=== PATIENT | male | born 1955 | race Caucasian/White ===

== ENCOUNTER 2021-08-27 09:54 | Inpatient (IN) ==
--- NOTE | 2021-08-27 10:12 | Emergency Department Note ---
Impression & Plan Multiple subsegmental pulmonary emboli without acute cor pulmonale, Acute DVT (deep venous thrombosis) ED Provider Note NAME: DARI THOMAS AGE: 65 SEX: M : 1955 ARRIVES VIA: Walk-In INFORMANT: Patient ED PROVIDER(S): Endy Salguero DO CHIEF COMPLAINT: right calf pain HPI: Patient is a 65-year-old male who presents to the ER for right lower extremity pain. This has been present for the past 5 days. He was going up and down stairs and cleaning out the attic when it started. It has been gradually getting worse. Has been noticing swelling of his right leg. He denies any tingling or numbness. No headache or change in vision. No chest pain or shortness of breath. No nausea, vomiting, or diarrhea. No dysuria, urgency, or frequency. Notes a swollen from the foot all the way up to the thigh. He does notice some discoloration. ROS: See above HPI for pertinent positives & negatives. A total of 10 systems reviewed and were otherwise negative. PAST MEDICAL HISTORY:See Below PAST SURGICAL HISTORY:See Below FAMILY HISTORY:See Below SOCIAL HISTORY:See Below HOME MEDICATIONS:See Below ALLERGIES:See Below VITALS:See Below PHYSICAL EXAMINATION: GENERAL: Sitting up in bed, alert, well appearing, well nourished, no distress, non-toxic EYE EXAM: normal conjunctiva. PERRL and EOM's grossly intact. OROPHARYNX: no exudate, no erythema, lips, buccal mucosa, and tongue normal and mucous membranes are moist NECK: supple, no nuchal rigidity, no adenopathy, non-tender LUNGS: Clear to auscultation. Normal chest wall mechanics HEART: no murmurs, S1 normal and S2 normal ABDOMEN: abdomen soft, non-tender, normo-active bowel sounds, no masses, no rebound or guarding. UPPER EXTREMITIES: upper extremities are grossly normal. LOWER EXTREMITIES: Flexion and extension of the hips, knees, ankles, and EHL 5/5 bilaterally. Gross sensation is intact. Right calf is larger than left. Unable to appreciate right DP. NEURO EXAM: Normal sensorium, cranial nerves II-XII grossly intact, normal speech, no gross weakness of arms, no gross weakness of legs. MEDICAL DECISION MAKING: Patient is a 65-year-old male who presents ER for right lower extremity pain. IV was established blood work was obtained. Labs showed no significant leukocytosis or anemia. INR was unremarkable. BMP along with LFTs bilirubin was unremarkable. Covid negative. Ultrasound both arterial and venous shows extensive clot in the right lower extremity on the venous side. Arterial was clean. CT angio of the chest shows PEs. Risk and benefits of heparin were discussed at bedside in the usual customary fashion. He was given a bolus of he yaritza as well as placed on a heparin drip. He was updated bedside discussed with Kirstie larios for further evaluation. Triage Nursing notes reviewed. Limited review of prior medical records performed Vital Signs: reviewed and remarkable for HTN Differential diagnosis: DVT, musculoskeletal, infection, joint effusion, trauma, lymphedema, idiopathic, CHF, as well as other pathologies. ER treatment provided: See below Diagnostics interpreted by me: ECG: none Cardiac Monitoring: An order was placed for continuous cardiac monitoring. The monitor shows a rate of 62 with sinus rhythm. Laboratory studies: As stated above and show below. Imaging studies: Ultrasound arterial was negative of the right lower extremity Ultrasound venous duplex shows extensive clot in the right lower extremity CT angio of the chest shows PEs Consultation(s): Discussed with Kirstie larios as stated above Procedures: none Critical Care: I have personally spent 32 minutes of critical care time in the direct management of this patient. This includes bedside care, interpretation of diagnostic studies, and testing, discussion with consultants, patient, and family members, and other required patient management activities. This 32 mi nutes is in excess of all separately billable procedures. Past Med/Surg History Surgical History (Updated 08/27/21 @ 13:20 by SUSANA Downing) H/O neck surgery Social History Smoking Status: Never smoker Preferred Language: Japanese Feels Safe at Home: Yes Allergies Allergies Allergy/AdvReac Type Severity Reaction Status Date / Time bee venom protein (honey bee) Allergy Severe ANAPHYLAXIS Verified 08/27/21 12:19 Penicillins Allergy Unknown UNKNOWN Verified 08/27/21 12:19 Home Meds Home Medications Medication Instructions Recorded Confirmed [facility] Darryl Man Vitamin Pack 1 pkg PO QAM 08/27/21 08/27/21 epinephrine 0.15 mg/0.3 mL 0.3 ml IM DIRECTED PRN 08/27/21 08/27/21 injection,auto-injector ibuprofen 200 mg tablet 400 mg PO Q6H PRN 08/27/21 08/27/21 Results & Data (ED) Vital Signs Vital Signs - 24 hr 08/27/21 09:58 08/27/21 10:05 08/27/21 11:35 Temperature 36.4 C L 37 C Temperature Source Temporal Artery Scan Oral Pulse Rate 70 69 Pulse Rate [Finger] 67 69 Pulse Rhythm Regular Regular Pulse Rhythm [Finger] Regular Pulse Strength Normal Pulse Strength [Finger] Normal Normal Respiratory Rate 20 18 18 Respiratory Effort / Characteristics Non-Labored Spontaneous Non-Labored Non-Labored Spontaneous Respiratory Depth Normal Normal Normal Respiratory Pattern Regular Blood Pressure 172/68 H Blood Pressure [Right Arm] 159/82 H 158/84 H Blood Pressure Mean 102 Blood Pressure Mean [Right Arm] 107 108 Blood Pressure Position Sitting Blood Pressure Position [Right Arm] Sitting Lying Pulse Oximetry 98 98 97 Oxygen Delivery Method Room Air Room Air Room Air Sepsis Recent Fever Within 48 Hours No Sepsis New/Unexplained Change in Mental Status No Sepsis Action Taken by Nursing No Action Required Laboratory Data Result diagrams: 08/27/21 10:35 08/27/21 10:35 Lab Results 08/27/21 08/27/21 08/27/21 Range/Units 10:35 10:35 10:35 WBC 6.55 (4.8-10.8) K/uL RBC 4.69 L (4.7-6.1) M/uL Hgb 14.9 (14.0-18.0) g/dL Hct 43.4 (42-52) % MCV 92.5 (80-100) fL MCH 31.8 (25-34) pg MCHC 34.3 (32-36) g/dL RDW Std Deviation 46.8 H (36.4-46.3) fL RDW Coeff of Marcio 13.9 (11.5-14.5) % Plt Count 174 (130-400) K/uL MPV 9.8 (7.4-10.4) fL Immature Gran % (Auto) 0.3 % Neut % (Auto) 56.1 % Lymph % (Auto) 30.8 % [place] % (Auto) 9.3 % Eos % (Auto) 3.2 % Baso % (Auto) 0.3 % Neut # (Auto) 3.67 (1.4-6.5) K/uL Lymph # (Auto) 2.02 (1.2-3.4) K/uL [place] # (Auto) 0.61 H (0.11-0.59) K/uL Eos # (Auto) 0.21 (0-0.5) K/uL Baso # (Auto) 0.02 (0-0.2) K/uL Immature Gran # (Auto) 0.02 (0.00-0.02) K/uL PT 10.9 (9.0-12.0) Seconds INR 1.0 (0.9-1.1) APTT 28.0 (21.0-31.0) Seconds PTT Ratio 1.0 Sodium 136 (136-145) mmol/L Potassium 4.4 (3.5-5.1) mmol/L Chloride 104 (98-107) mmol/L Carbon Dioxide 25 (21-32) mmol/L Anion Gap 7 (3-11) BUN 12 (6-23) mg/dl Creatinine 0.76 (0.6-1.4) mg/dl Est Cr Clr Drug Dosing 107.5 ml/min Est GFR ( Amer) 112.5 ml/min Est GFR (Non-Af Amer) 97.1 ml/min BUN/Creatinine Ratio 15.8 (10-20) Glucose 93 (70-99(Fasting)) mg/dl Calcium 9.0 (8.5-10.1) mg/dl Total Bilirubin 0.7 (0.2-1.0) mg/dl AST 24 (13-39) U/L ALT 31 (7-52) U/L Alkaline Phosphatase 62 (34-104) U/L Total Protein 7.0 (6.0-8.3) gm/dl Albumin 4.2 (3.4-5.0) gm/dl Globulin 2.8 (2.5-4.0) gm/dl Albumin/Globulin Ratio 1.5 (0.9-2) SARS-CoV-2, RNA, NAAT (NEGATIVE) 08/27/21 Range/Units Unknown WBC (4.8-10.8) K/uL RBC (4.7-6.1) M/uL Hgb (14.0-18.0) g/dL Hct (42-52) % MCV (80-100) fL MCH (25-34) pg MCHC (32-36) g/dL RDW Std Deviation (36.4-46.3) fL RDW Coeff of Marcio (11.5-14.5) % Plt Count (130-400) K/uL MPV (7.4-10.4) fL Immature Gran % (Auto) % Neut % (Auto) % Lymph % (Auto) % [place] % (Auto) % Eos % (Auto) % Baso % (Auto) % Neut # (Auto) (1.4-6.5) K/uL Lymph # (Auto) (1.2-3.4) K/uL [place] # (Auto) (0.11-0.59) K/uL Eos # (Auto) (0-0.5) K/uL Baso # (Auto) (0-0.2) K/uL Immature Gran # (Auto) (0.00-0.02) K/uL PT (9.0-12.0) Seconds INR (0.9-1.1) APTT (21.0-31.0) Seconds PTT Ratio Sodium (136-145) mmol/L Potassium (3.5-5.1) mmol/L Chloride (98-107) mmol/L Carbon Dioxide (21-32) mmol/L Anion Gap (3-11) BUN (6-23) mg/dl Creatinine (0.6-1.4) mg/dl Est Cr Clr Drug Dosing ml/min Est GFR ( Amer) ml/min Est GFR (Non-Af Amer) ml/min BUN/Creatinine Ratio (10-20) Glucose (70-99(Fasting)) mg/dl Calcium (8.5-10.1) mg/dl Total Bilirubin (0.2-1.0) mg/dl AST (13-39) U/L ALT (7-52) U/L Alkaline Phosphatase (34-104) U/L Total Protein (6.0-8.3) gm/dl Albumin (3.4-5.0) gm/dl Globulin (2.5-4.0) gm/dl Albumin/Globulin Ratio (0.9-2) SARS-CoV-2, RNA, NAAT NEGATIVE (NEGATIVE) Administered Medications Heparin Sodium/Dextrose (Heparin Sodium/Dextrose) 25,000 units in 500 mls @ 0.02 mls/hr IV .Q24H YASIR; Protocol Stop: 09/26/21 13:14 Last Admin: 08/27/21 13:12 Dose: 1,400 units/hr, 28 mls/hr Documented by: [id number] Cosigned by: [id number] Discontinued Medications Heparin Sodium (Porcine) (Heparin Sod (Porcine) 1000 Unit/Ml) 1 units IV NOW ONE Stop: 08/27/21 13:03 Last Admin: 08/27/21 13:12 Dose: 6,000 units Documented by: [id number] Cosigned by: [id number] Heparin Sodium/Dextrose (Heparin Iv Adult Wt-Based Standard With Bolus Protocol) 1 ea IV NOW STA; Protocol Stop: 08/27/21 12:47 Last Admin: 08/27/21 13:12 Dose: 1 ea Documented by: [id number] Ioversol (Optiray 320 125ml) 120 ml IV ONCE ONE Stop: 08/27/21 11:55 Last Admin: 08/27/21 11:54 Dose: 120 ml Documented by: [id number] Imaging Data Radiologist's Impression: Venous Doppler Study 08/27/21 10:06 US venous doppler LE RT CLINICAL HISTORY: Right leg swelling. COMPARISON STUDY: None. FINDINGS: Occlusive thrombus within the right common femoral, superficial femoral, and popliteal veins. IMPRESSION: Extensive right lower extremity deep vein thrombosis. ACT 112: Negative or not required by law. Electronically signed by: Jefferson Mullins M.D. 08/27/2021 11:29 AM Duplex Scan Lower Extremity Artery 08/27/21 10:13 US arterial duplex LE RT CLINICAL HISTORY: diff to find pulse COMPARISON STUDY: None. FINDINGS: Normal triphasic to biphasic waveforms and velocities seen throughout the right lower extremity arterial system. No areas of arterial occlusion. IMPRESSION: No significant stenosis or occlusion within the right lower extremity arterial system. ACT 112: Negative or not required by law. Electronically signed by: Jefferson Mullins M.D. 08/27/2021 11:29 AM Chest CTA 08/27/21 11:32 CHEST CTA for PULMONARY ARTERIES CT DOSE: 402.11 mGy.cm HISTORY: Right leg swelling with DVT. Assess for pulmonary embolus. TECHNIQUE: Multiaxial CT images of the chest were performed following the intravenous administration of contrast to evaluate the pulmonary arteries. Maximal intensity projection images were also obtained. A dose lowering technique was utilized adhering to the principles of ALARA. COMPARISON STUDY: Chest 01/29/2009. FINDINGS: Limited views of the upper abdomen demonstrate a normal liver, spleen, and visualized adrenal glands. Normal esophagus. The thyroid gland enhances normally. Partially visualized cervical spinal fusion hardware is noted. No pleural or pericardial effusions. The heart is borderline enlarged. No mediastinal or hilar lymphadenopathy. Normal caliber thoracic aorta with no evidence for dissection. No right-sided heart strain. Scattered filling defects seen within the segmental/subsegmental pulmonary arteries of the bilateral lower lobes consistent with pulmonary emboli. No pneumothorax. The central airways are patent. No focal lung consolidations. No evidence for a pulmonary infarct at this time. IMPRESSION: 1. Scattered segmental/subsegmental pulmonary emboli seen within the bilateral lower lobes. 2. The heart is borderline enlarged. No evidence for right-sided heart strain at this time. ACT 112: Negative or not required by law. Electronically signed by: Jefferson Mullins M.D. 08/27/2021 12:11 PM Discharge Plan Visit Data Chief Complaint: Leg Injury/Pain Stated Complaint: PAIN &SWELLING IN R LEG ED Provider: Endy Salguero Prescriptions Prescriptions: No Action epinephrine 0.15 mg/0.3 mL auto-injector 0.3 ml IM DIRECTED PRN (Reason: Anaphylaxis) RF: 0 ibuprofen 200 mg Tablet 400 mg PO Q6H PRN (Reason: fever/pain) RF: 0 [facility] Darryl Man Vitamin Pack 1 pkg PO QAM RF: 0
[2021-08-27 10:55] LABS: Prothrombin Time 10.9 Seconds (9.0-12.0)
[2021-08-27 11:19] LABS: Albumin Globulin Ratio 1.5 (0.9-2); Albumin Level 4.2 gm/dl (3.4-5.0); BUN Creatinine Ratio 15.8 (10-20); Bilirubin,Total 0.7 mg/dl (0.2-1.0); Creatinine Clr Calc Pharmacy 107.5 ml/min; Est GFR (African American) 112.5 ml/min; Est GFR (Non-African American) 97.1 ml/min; Globulin 2.8 gm/dl (2.5-4.0); Potassium 4.4 mmol/L (3.5-5.1)
[2021-08-27 11:25] LABS: Basophils # (auto) 0.02 K/uL (0-0.2); Basophils % (auto) 0.3 %; Eosinophils # (auto) 0.21 K/uL (0-0.5); Eosinophils % (auto) 3.2 %; Hematocrit (blood only) 43.4 % (42-52); Hemoglobin 14.9 g/dL (14.0-18.0); Immature Granulocytes # (auto) 0.02 K/uL (0.00-0.02); Immature Granulocytes % (auto) 0.3 %; Lymphocytes # (auto) 2.02 K/uL (1.2-3.4); Lymphocytes % (auto) 30.8 %; Mean Corpuscular Hemoglobin 31.8 pg (25-34); Mean Corpuscular Hgb Conc 34.3 g/dL (32-36); Mean Corpuscular Volume 92.5 fL (80-100); Mean Platelet Volume 9.8 fL (7.4-10.4); Monocytes # (auto) 0.61 K/uL (0.11-0.59); Monocytes % (auto) 9.3 %; Neutrophils # (auto) 3.67 K/uL (1.4-6.5); Neutrophils % (auto) 56.1 %; Platelet Count 174 K/uL (130-400); RDW Coefficient of Variation 13.9 % (11.5-14.5); RDW Standard Deviation 46.8 fL (36.4-46.3); Red Blood Count 4.69 M/uL (4.7-6.1); White Blood Count 6.55 K/uL (4.8-10.8)
--- NOTE | 2021-08-27 11:30 | Ultrasound Report ---
US venous doppler LE RT CLINICAL HISTORY: Right leg swelling. COMPARISON STUDY: None. FINDINGS: Occlusive thrombus within the right common femoral, superficial femoral, and popliteal vein s. IMPRESSION: Extensive right lower extremity deep vein thrombosis. ACT 112: Negative or not required by law. Electronically signed by: Jefferson Mullins M.D. 08/27/2021 11:29 AM
--- NOTE | 2021-08-27 11:31 | Ultrasound Report ---
US arterial duplex LE RT CLINICAL HISTORY: diff to find pulse COMPARISON STUDY: None. FINDINGS: Normal triphasic to biphasic waveforms and velocities seen throughout the right lower extre mity arterial system. No areas of arterial occlusion. IMPRESSION: No significant stenosis or occlusion within the right lower extremity arterial system. ACT 112: Negative or not required by law. Electronically signed by: Jefferson Mullins M.D. 08/27/2021 11:29 AM
[2021-08-27] MEDS ORDERED: OPTIRAY 320 125ml IV ONE (11:54)
--- NOTE | 2021-08-27 12:12 | CT Scan Report ---
CHEST CTA for PULMONARY ARTERIES CT DOSE: 402.11 mGy.cm HISTORY: Right leg swelling with DVT. Assess for pulmonary embolus. TECHNIQUE: Multiaxial CT images of the chest were performed following the intravenous administration of contrast to evaluate the pulmonary arteries. Maximal intensity projection images were also obtaine d. A dose lowering technique was utilized adhering to the principles of ALARA. COMPARISON STUDY: Chest 01/29/2009. FINDINGS: Limited views of the upper abdomen demonstrate a normal liver, spleen, and visualized adren al glands. Normal esophagus. The thyroid gland enhances normally. Partially visualized cervical spina l fusion hardware is noted. No pleural or pericardial effusions. The heart is borderline enlarged. No mediastinal or hilar lymphadenopathy. Normal caliber thoracic aorta with no evidence for dissection. No right-sided heart strain. Scattered filling defects seen within the segmental/subsegmental pulmon sara arteries of the bilateral lower lobes consistent with pulmonary emboli. No pneumothorax. The cent ral airways are patent. No focal lung consolidations. No evidence for a pulmonary infarct at this mynor e. IMPRESSION: 1. Scattered segmental/subsegmental pulmonary emboli seen within the bilateral lower lobes. 2. The heart is borderline enlarged. No evidence for right-sided heart strain at this time. ACT 112: Negative or not required by law. Electronically signed by: Jefferson Mullins M.D. 08/27/2021 12:11 PM
[2021-08-27] MEDS ORDERED: Heparin IV Adult Wt-Based Standard WITH Bolus Protocol IV STA (12:46)
[2021-08-27] MEDS ORDERED: HEPARIN SOD (PORCINE) 1000 UNIT/ML IV ONE (13:02)
[2021-08-27] MEDS: HEPARIN SODIUM/DEXTROSE 25,000 UNITS/500 ML BAG IV SCH (13:12)
[2021-08-27] MEDS: Heparin IV Adult Wt-Based Standard WITH Bolus Protocol IV SCH ×4 (13:26→19:10)
--- NOTE | 2021-08-27 13:35 | History & Physical Report ---
Date of Service August 27, 2021 Assessment & Plan (1) Acute DVT (deep venous thrombosis): (2) Multiple subsegmental pulmonary emboli without acute cor pulmonale: Plan: Admit to [facility] with telemetry Patient presenting with 4 days of RLE swelling and pain In the ED, RLE venous Doppler shows occlusive thrombus within the right common femoral, superficial femoral, and popliteal veins. CTA chest shows Scattered segmental/subsegmental pulmonary emboli seen within the bilateral lower lobes. Started on IV heparin in the ED, continue with. Likely transition to Eliquis in a day or so Seems to be unprovoked PE, + family history of blood clots. Recommend outpatient hypercoagulable work-up and up-to-date cancer screenings. (3) DVT prophylaxis: Plan: On IV heparin History of Present Illness Chief Complaint: Right leg swelling Primary Care Provider: Xavi Licea DO 65-year-old male without significant past medical history who presents the ED for evaluation of right leg swelling and pain. Patient reports symptoms have been present for the past 4 days. He felt as though maybe he pulled a muscle in his right calf after exercising without stretching prior to. Patient denies chest pain shortness of breath. No lightheadedness, dizziness, diaphoresis, syncopal events. Denies abdominal pain, nausea, vomiting, diarrhea. No urinary symptoms. Patient reports traveling by car to [place] yesterday to visit his father, was in the car for about a total of 6 hours. Otherwise patient is very active. In the ED, RLE venous Doppler shows Extensive right lower extremity deep vein thrombosis and CTA chest shows Scattered segmental/subsegmental pulmonary emboli seen within the bilateral lower lobes. Patient is hemodynamically stable and saturating well on room air. He was started on an IV heparin drip. Allergies Allergy/AdvReac Type Severity Reaction Status Date / Time bee venom protein (honey bee) Allergy Severe ANAPHYLAXIS Verified 08/27/21 12:19 Penicillins Allergy Unknown UNKNOWN Verified 08/27/21 12:19 Home Medications Medication Instructions Recorded Confirmed Type [facility] Darryl Man Vitamin Pack 1 pkg PO QAM 08/27/21 08/27/21 History epinephrine 0.15 mg/0.3 mL 0.3 ml IM DIRECTED PRN 08/27/21 08/27/21 History injection,auto-injector ibuprofen 200 mg tablet 400 mg PO Q6H PRN 08/27/21 08/27/21 History Past Med/Surg History Medical History No significant past medical history Surgical History H/O neck surgery Family History Brother Deep vein thrombosis Brother Thrombophlebitis Mother Thrombophlebitis Father Heart disease Social History Smoking Status: Never smoker Hx Alcohol Use: Yes Alcohol type: wine Alcohol type Comment: Half bottle of red wine per day Hx Substance Use: No Preferred Language: Azeri Communication Ability: Effective Beauty Advisor Required: No Beliefs That Will Affect Care: None Current Living Situation: Spouse Other Information That Helps Us Care for You: No Feels Safe at Home: Yes Safety Concerns: Feels Safe At This Time Assistive Devices: Contacts Review of Systems Review of Systems: ROS per HPI, all other systems reviewed and negative Physical Exam Constitutional: WD/WN, vitals as above Eyes: PERRL, conjunctivae normal, anicteric sclerae ENMT: external ear and nose normal, oropharynx normal Respiratory: normal respiratory effort, lungs clear to auscultation Cardiovascular: Rate/Rhythm: regular rate and regular rhythm Vessels: + abnormal peripheral pulses (Right pedal pulse diminished but palpable) Extremities: + edema (+1-2 edema RLE, most pronounced around the ankle) Gastrointestinal (Abdomen): normal bowel sounds, soft, nontender, no hepatosplenomegaly Musculoskeletal: no cyanosis or clubbing, extremities motor strength 5/5 RLE with mild red/purple discoloration Skin: no rashes, warm and dry Neurologic: PERRL, EOMI, accommodation nl, no face palsy, no dysarthria Psychiatric: A+Ox3, euthymic affect Results & Data Results & Data ([facility]) Vital Signs (Past 12 Hours) Vital Signs Temp Pulse Pulse Resp BP BP Pulse Ox 08/27/21 11:35 37 C 69 69 18 158/84 H 97 08/27/21 10:05 67 18 159/82 H 98 08/27/21 09:58 36.4 C L 70 20 172/68 H 98 Laboratory Results Short CBC 08/27/21 Range/Units 10:35 WBC 6.55 (4.8-10.8) K/uL Hgb 14.9 (14.0-18.0) g/dL Hct 43.4 (42-52) % Plt Count 174 (130-400) K/uL BMP 08/27/21 10:35 Sodium 136 Potassium 4.4 Chloride 104 Carbon Dioxide 25 BUN 12 Creatinine 0.76 Glucose 93 Calcium 9.0 Liver Function 08/27/21 Range/Units 10:35 Total Bilirubin 0.7 (0.2-1.0) mg/dl AST 24 (13-39) U/L ALT 31 (7-52) U/L Alkaline Phosphatase 62 (34-104) U/L Albumin 4.2 (3.4-5.0) gm/dl Diagnostic Findings Venous Doppler Study 08/27/21 10:06 US venous doppler LE RT CLINICAL HISTORY: Right leg swelling. COMPARISON STUDY: None. FINDINGS: Occlusive thrombus within the right common femoral, superficial femoral, and popliteal veins. IMPRESSION: Extensive right lower extremity deep vein thrombosis. ACT 112: Negative or not required by law. Electronically signed by: Jefferson Mullins M.D. 08/27/2021 11:29 AM Duplex Scan Lower Extremity Artery 08/27/21 10:13 US arterial duplex LE RT CLINICAL HISTORY: diff to find pulse COMPARISON STUDY: None. FINDINGS: Normal triphasic to biphasic waveforms and velocities seen throughout the right lower extremity arterial system. No areas of arterial occlusion. IMPRESSION: No significant stenosis or occlusion within the right lower extremity arterial system. ACT 112: Negative or not required by law. Electronically signed by: Jefferson Mullins M.D. 08/27/2021 11:29 AM Chest CTA 08/27/21 11:32 CHEST CTA for PULMONARY ARTERIES CT DOSE: 402.11 mGy.cm HISTORY: Right leg swelling with DVT. Assess for pulmonary embolus. TECHNIQUE: Multiaxial CT images of the chest were performed following the intravenous administration of contrast to evaluate the pulmonary arteries. Maximal intensity projection images were also obtained. A dose lowering technique was utilized adhering to the principles of ALARA. COMPARISON STUDY: Chest 01/29/2009. FINDINGS: Limited views of the upper abdomen demonstrate a normal liver, spleen, and visualized adrenal glands. Normal esophagus. The thyroid gland enhances normally. Partially visualized cervical spinal fusion hardware is noted. No pleural or pericardial effusions. The heart is borderline enlarged. No mediastinal or hilar lymphadenopathy. Normal caliber thoracic aorta with no evidence for dissection. No right-sided heart strain. Scattered filling defects seen within the segmental/subsegmental pulmonary arteries of the bilateral lower lobes consistent with pulmonary emboli. No pneumothorax. The central airways are patent. No focal lung consolidations. No evidence for a pulmonary infarct at this time. IMPRESSION: 1. Scattered segmental/subsegmental pulmonary emboli seen within the bilateral lower lobes. 2. The heart is borderline enlarged. No evidence for right-sided heart strain at this time. ACT 112: Negative or not required by law. Electronically signed by: Jefferson Mullins M.D. 08/27/2021 12:11 PM Code Status & VTE Plan VTE Prophylaxis Plan VTE Prophylaxis will be ordered: No Supervising Physician Co-Signing Physician Notes Care coordinated with SUSANA Downing Agree with above note. Patient seen and examined. Please refer to her notes for full details. Vital signs reviewed. Physical exam: General exam: Alert and oriented. Not in acute distress. CVS: S1 and S2 heard, regular rate and rhythm, no murmurs. RS: Clear to auscultation, no wheezing or crackles. ABD: Soft, bowel sounds present, nontender, no distention. WRITING CENTER DIRECTOR: Nonfocal. EXT: No edema, no erythema. Labs: Reviewed. Assessment and plan: 65M with no significant PMH presents with Right leg pain and found to have DVT and bilateral lower lobe PE. No hx of prior blood clots. But says his Mother and brother had blood clots. Denies any chest pain or sob. He was taking stuff to his atiic yesterday felt little more sob [place] usual. Otherwise active.Hemodynamics stable. 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 Gary darden MD.
[2021-08-27] MEDS ORDERED: ACETAMINOPHEN 325 MG TAB PO PRN (14:51)
[2021-08-27] MEDS ORDERED: Nursing to Pharmacy Communication SCH (16:00)
[2021-08-27 19:37] LABS: Partial Thromboplastin Ratio 2.4
[2021-08-27 20:10] LABS: Partial Thromboplastin Time 66.5 Seconds (21.0-31.0)
[2021-08-28 05:02] LABS: Hematocrit (blood only) 41.8 % (42-52); Hemoglobin 14.6 g/dL (14.0-18.0); Mean Corpuscular Hemoglobin 32.2 pg (25-34); Mean Corpuscular Hgb Conc 34.9 g/dL (32-36); Mean Corpuscular Volume 92.3 fL (80-100); Mean Platelet Volume 9.6 fL (7.4-10.4); Platelet Count 196 K/uL (130-400); RDW Coefficient of Variation 13.9 % (11.5-14.5); RDW Standard Deviation 47.2 fL (36.4-46.3); Red Blood Count 4.53 M/uL (4.7-6.1); White Blood Count 7.19 K/uL (4.8-10.8)
[2021-08-28 05:24] LABS: BUN Creatinine Ratio 20.5 (10-20); Calcium 9.7 mg/dl (8.5-10.1); Creatinine Clr Calc Pharmacy 111.9 ml/min; Est GFR (African American) 114.4 ml/min; Est GFR (Non-African American) 98.7 ml/min; Potassium 4.2 mmol/L (3.5-5.1)
[2021-08-28 05:26] LABS: Partial Thromboplastin Ratio 2.2
[2021-08-28 05:27] LABS: Partial Thromboplastin Time 60.1 Seconds (21.0-31.0)
[2021-08-28] MEDS: HEPARIN SODIUM/DEXTROSE 25,000 UNITS/500 ML BAG IV SCH (07:57)
--- NOTE | 2021-08-28 09:22 | Electrocardiogram Report ---
Test Reason : Blood Pressure : / mmHG Vent. Rate : 069 BPM Atrial Rate : 069 BPM P-R Int : 166 ms QRS Dur : 138 ms QT Int : 418 ms P-R-T Axes : 052 -41 013 degrees QTc Int : 447 ms Normal sinus rhythm Left axis deviation Right bundle branch block Voltage criteria for left ventricular hypertrophy Abnormal ECG When compared with ECG of 29-JAN-2009 11:15, Right bundle branch block is now Present Confirmed by Arya Washington ([id number]) on 08/28/2021 9:22:13 AM Referred By: REFERRED SELF Confirmed By:Arya Washington
--- NOTE | 2021-08-28 14:58 | Hospitalist Progress Note ---
Date of Service August 28, 2021 Assessment & Plan Plan: Unprovoked RLE DVT B/L PE -family history of blood clot -continue heparin drip -in AM, will need to verify coverage of NOAC. If covered, will switch him to NOAC and discharge home -no evidence of heart strain or hypoxia -patient will need 3-6 months of AC, then will need hypercoagulable work up. Follow up with PCP for age appropriate cancer screening Admission and Anticipated Discharge Date Admission Date: August 27, 2021 Anticipated date of discharge: 08/29/21 Subjective tolerating heparin drip with no bleeding events No issues overnight Feels well Physical Exam Physical Exam: Appears stated age, no acute distress, non toxic Respiratory: breathing comfortably on room air, no wheezing/rhonchi/rales Cardiovascular: regular rate and rhythm, no murmurs/rubs/gallops Gastrointestinal (Abdomen): soft, non tender, non distended Musculoskeletal: trace right leg swelling Neurologic: awake, alert spontaneously moving extremities Results & Data Results & Data ([facility]) Vital Signs (Past 12 Hours) Vital Signs Temp Pulse Pulse Resp BP Pulse Ox 08/28/21 11:52 61 08/28/21 11:25 36.7 C 68 147/78 H 96 08/28/21 06:46 36.8 C 67 18 166/33 H 98 08/28/21 03:58 36.5 C 66 18 144/83 H 94 Laboratory Results Short CBC 08/28/21 Range/Units 04:16 WBC 7.19 (4.8-10.8) K/uL Hgb 14.6 (14.0-18.0) g/dL Hct 41.8 L (42-52) % Plt Count 196 (130-400) K/uL BMP 08/28/21 04:16 Sodium 137 Potassium 4.2 Chloride 103 Carbon Dioxide 27 BUN 15 Creatinine 0.73 Glucose 94 Calcium 9.7 Medications Administered Current Inpatient Medications Acetaminophen (Acetaminophen 325 Mg Tab) 650 mg PO Q4H PRN PRN Reason: Pain or Fever Stop: 09/26/21 14:50 Heparin Sodium/Dextrose (Heparin Sodium/Dextrose) 25,000 units in 500 mls @ 26 mls/hr IV .[id number] [facility]; Protocol Stop: 09/26/21 13:14 Last Admin: 08/28/21 07:57 Dose: 1,300 units/hr, 26 mls/hr Documented by:
[2021-08-29] MEDS: HEPARIN SODIUM/DEXTROSE 25,000 UNITS/500 ML BAG IV SCH (02:59)
[2021-08-29 07:50] LABS: Partial Thromboplastin Time 55.4 Seconds (21.0-31.0)
[2021-08-29] MEDS ORDERED: RIVAROXABAN 15 MG TAB PO SCH (09:00)
== END 2021-08-29 10:22 | disposition home or self-care (01) | DRG 299 ==
LOC: ED 09:54 → 2N 12:35 → SUATTDRO 12:35 → 2N 14:43
DX: I82.411 Acute embolism and thrombosis of right femoral vein; I82.811 Embolism and thrombosis of superficial veins of right lower extremity; I82.431 Acute embolism and thrombosis of right popliteal vein; Z88.0 Allergy status to penicillin; Z91.030 Bee allergy status; Z82.49 Family history of ischemic heart disease and other diseases of the circulatory system; I26.94 Multiple subsegmental thrombotic pulmonary emboli without acute cor pulmonale